=== PATIENT | female | born 1950 | race Caucasian/White ===

== ENCOUNTER 2023-04-24 08:49 | Emergency (ER) | payer MEDICARE, OTHER, SELFPAY ==
[2023-04-24 08:56] VITALS: BP 125/77; PULSE 65; RESP 18; TEMP 36.1; O2SAT 95; BMI 40.9
--- NOTE | 2023-04-24 09:07 | ED_ITS ---
HPI - General Adult General Time Seen by Provider: 09:08 Date Seen: 04/24/23 Chief complaint: Cough Stated complaint: pain R side Time Seen by Provider: 04/24/23 08:59 History of Present Illness HPI narrative: Very pleasant 72-year-old female with a past history of occasional sinus infections, but no history of heart disease, PE, asthma, COPD or other cardiopulmonary disease. She was sent to the ER today by the [facility] triage line for evaluation of cough and chest pain. She has had symptoms that she thinks are probably a ?sinus infection? for the past couple of weeks. She has had some nasal drainage and resultantly a cough. Cough is sometimes productive but no dark green sputum or any hemoptysis. She has not had any fever. She has generally not been short of breath. Since yesterday she has also been having some pain with coughing and breathing that affects her right posterolateral rib cage. She is pretty sure that she had a coughing spell yesterday and pulled muscles there. She is scheduled for her routine screening colonoscopy tomorrow and call the [facility] today to make an appointment to be checked out for the cough and sinus infection, and to determine whether not she should go ahead with her colonoscopy prep and the procedure tomorrow (since she is sick). Unfortunately the [facility] was booked up so they sent her here to the ER to be checked out. She is not having any flank pain or anterior abdominal pain. The pain is in her ribs. She does not really feel short of breath. No fevers. No headache. No sore throat. No central or left-sided chest pain, only in her right posterolateral ribs. She has not noticed any rash. No known injury. No swelling in her legs. Related Data Previous Rx's Medication Instructions Recorded diazepam 5 mg tablet 2.5 - 5 mg (0.5 - 1 x 5 mg) PO TID 04/24/23 PRN muscle spasm #10 tabs Allergies Allergy/AdvReac Type Severity Reaction Status Date / Time Cephalosporins Allergy Intermediate Hives Verified 04/24/23 08:56 PFSH PFSH Social History Non-prescribed substance use: denies use Exam Narrative: Exam Narrative: Constitutional: Appears well-developed and well-nourished. Alert. Conversant. Non toxic. HENT: Head: Atraumatic. Nose: Nose normal. No purulent drainage. No sinus tenderness. Mouth/Throat: Oral mucosa is clear and moist. no trismus. Pharynx normal. Tonsils symmetric. No tonsillar enlargement, erythema, or exudate. Eyes: Conjunctivae normal. EOM normal. Pupils equal, round, and reactive to light. No scleral icterus. Neck: Normal range of motion. Neck supple. No tracheal deviation present. No JVD Cardiovascular: Normal rate, regular rhythm. No gallop. No friction rub. No murmur heard. Symmetric radial artery pulses Pulmonary/Chest: Effort normal. No stridor. No respiratory distress. No wheezes. Subtle right> left basilar rales rhonchi . No tenderness. No rash. No shingles. Abdominal: Soft. Bowel sounds normal. No distension. No mass. No tenderness. No right upper quadrant tenderness or Niño sign. No rebound. No guarding. Musculoskeletal: RUE: Normal range of motion. No tenderness. No deformity LUE: Normal range of motion. No tenderness. No deformity RLE: Normal range of motion. No edema. No tenderness. No deformity LLE: Normal range of motion. No edema. No tenderness. No deformity Lymph: No cervical adenopathy. Neurological: Alert and oriented to person, place, and time. Normal strength. CN II-VII intact. No sensory deficit. GCS eye subscore is 4. GCS verbal subscore is 5. GCS motor subscore is 6. Normal coordination Skin: Skin is warm and dry. No rash noted. No pallor. Normal capillary refill. Psychiatric: Normal mood. Normal affect. Const: Vital Signs, click to edit/add: Vital Signs - 24 hr 04/24/23 08:56 Temperature 96.9 F L Pulse Rate [Pulse Oximeter] 65 Respiratory Rate 18 Blood Pressure [Ri ght Upper Arm] 125/77 Pulse Oximetry 95 Oxygen Delivery Me thod Room Air Course Vital Signs Vital signs: Initial Vital Signs Temperature 96.9 F L 04/24/23 08:56 Temperature Source Temporal Artery Scan 04/24/23 08:56 Pulse Rate 65 04/24/23 08:56 Respiratory Rate 18 04/24/23 08:56 Blood Pressure 125/77 04/24/23 08:56 Blood Pressure Mean 93 04/24/23 08:56 Pulse Oximetry 95 04/24/23 08:56 Oxygen Delivery Method Room Air 04/24/23 08:56 Vital Signs Temperature 96.9 F L 04/24/23 08:56 Pulse Rate 65 04/24/23 08:56 Respiratory Rate 18 04/24/23 08:56 Blood Pressure 125/77 04/24/23 08:56 Pulse Oximetry 95 04/24/23 08:56 Oxygen Delivery Method Room Air 04/24/23 08:56 Temperature 96.9 F L 04/24/23 08:56 Pulse Rate 65 04/24/23 08:56 Respiratory Rate 18 04/24/23 08:56 Blood Pressure 125/77 04/24/23 08:56 Pulse Oximetry 95 04/24/23 08:56 Oxygen Delivery Method Room Air 04/24/23 08:56 Medical Decision Making MDM Narrative Medical decision making narrative: This patient presents for evaluation of cough ongoing for about the past 10 days-2 weeks. Cough is not really worse today but yesterday she feels like she pulled some muscles in her right posterolateral ribs and has been having pain with coughing since then.. This is consistent with an upper respiratory tract infection. Viral testing is negative for COVID, influenza, RSV.. There is no signs at this point of serious bacterial infection such as OM, RPA, epiglottitis, [employer], strep pharyngitis, pneumonia, sinusitis, meningitis, bacteremia, serious bacterial infection. Given duration of cough and associated pain we did feel a chest x-ray was indicated to look for pneumonia, associated pleural effusion, or possible rib fracture. Chest x-ray shows no acute findings. 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 A a broader Differential for her chest pain was also considered. Consider ACS, PE, shingles, blunt trauma, for pain from gallbladder, among others. Discussed possible further workup with EKG and labs. At this point the patient feels pretty confident that her pain is musculoskeletal so we decided to hold off on further workup. There are no gastrointestinal symptoms at this point and no signs of dehydration. She is scheduled for a routine screening outpatient colonoscopy tomorrow. I advised her to call her provider for that but likely this would need to be postponed in the setting of illness. Close followup with primary care physician is indicated. Return to ED for any worsening symptoms, especially worsening chest pain, worsening trouble breathing, fever > 103, protracted vomiting, confusion, or other worsening. Patient has been using [id number] Tylenol ibuprofen but find them to be ineffective for rib pain. She requests something stronger. Opiates have been ineffective for her in the past so will hold off on those. Will try a low-dose muscle relaxer with diazepam 2.5-5 mg p.o. t.i.d. p.r.n.. Reviewed the potential for side effects and sedation precautions. Patient understands and agrees. Lab Data Labs: Lab Results 04/24/23 Range/Units Unknown SARS-CoV-2 (PCR) Negative SARS-CoV-2 (Negative) Influenza Type A (PCR) Negative PCR FLU A (Negative) Influenza Type B (PCR) Negative PCR FLU B (Negative) RSV (PCR) Negative PCR RSV (Negative) Imaging Data Chest x-ray: Attestation: I have reviewed the pertinent imaging results. Radiologist's impression: Findings/Impression: Cardiovascular and mediastinum: Normal heart size with mild aortic tortuosity and atherosclerotic calcification. Lungs and pleural spaces: No pleural effusion pneumothorax. Trace discoid atelectasis left lung base. Bones and soft tissues: Degenerative disc disease thoracolumbar spine. Discharge Plan Discharge Clinical Impression: Cough, Pain in rib Patient Disposition: Home, Self-Care Condition: Stable Instructions: Chest Pain (DC), Acute Cough (ED) Additional Instructions: As we discussed, please come back to the ER right away if you have worsening cough, worsening pain in her chest, changing symptoms, lightheadedness, or any concerns. Continues to use [id number] medications such as Tylenol or ibuprofen to help manage her pain. Use the prescription muscle relaxer if needed. Be careful because this can cause drowsiness and dizziness. Call your doctor to reschedule your colonoscopy. Prescriptions: New diazepam 5 mg tablet 2.5 - 5 mg PO TID PRN (Reason: muscle spasm) Qty: 10 0RF Follow Up/Referrals: Nerissa Mock PA-C [Primary Care Provider] - Stand Alone Forms: [facility] Info Instructions
--- NOTE | 2023-04-24 09:10 | CRLHL7_ITS ---
For Patients: As a result of the Century Cures Act, medical imaging exams and procedure reports are released immediately into your electronic medical record. You may view this report before your referring provider. If you have questions, please contact your health care provider. Indication: Cough and right rib pain Technique: Chest 2 views Comparison: None Findings/Impression: Cardiovascular and mediastinum: Normal heart size with mild aortic tortuosity and atherosclerotic calcification. Lungs and pleural spaces: No pleural effusion pneumothorax. Trace discoid atelectasis left lung base. Bones and soft tissues: Degenerative disc disease thoracolumbar spine. Dictated by Chico Shetty MD @ 04/24/2023 9:49:31 AM (Electronically Signed)
[2023-04-24 10:00] LABS: PCR FLU A Negative PCR FLU A (Negative); PCR FLU B Negative PCR FLU B (Negative); PCR RSV Negative PCR RSV (Negative)
[2023-04-24 10:09] LABS: SARS PCR* Negative SARS-CoV-2 (Negative)
== END 2023-04-24 10:27 | disposition home or self-care (01) ==
PROVIDERS: Emergency Provider Emergency Medicine; PCP Student in an Organized Health Care Education/Training Program
DX: R05.9 Cough, unspecified (principal); R07.82 Intercostal pain
CPT/HCPCS: 71046; 87631; 99283

== ENCOUNTER 2023-08-03 22:30 | Emergency (ER) | payer MEDICARE, OTHER, SELFPAY ==
[2023-08-03 22:43] VITALS: BP 150/82; PULSE 78; RESP 18; TEMP 36.6; O2SAT 96; BMI 40.6
--- NOTE | 2023-08-03 22:52 | CRLHL7_ITS ---
For Patients: As a result of the Century Cures Act, medical imaging exams and procedure reports are released immediately into your electronic medical record. You may view this report before your referring provider. If you have questions, please contact your health care provider. INDICATION: Right flank pain. TECHNIQUE: CT abdomen and pelvis without contrast. COMPARISON: None. FINDINGS: Limited evaluation of the intra-abdominal solid organs without IV contrast. Lower chest: Unremarkable. Liver: Normal in size and attenuation. No suspicious masses. Gallbladder and bile ducts: No stones or inflammation. No biliary dilatation. Pancreas: Unremarkable. No mass or inflammation. Spleen: Normal in size. No masses. Adrenal glands: Normal in size. No nodules. Kidneys: Normal in size. No suspicious masses, stones, or hydronephrosis. GI tract: Redundant sigmoid. Average colonic stool volume. Appendix is not visualized. No bowel obstruction. Small hiatal hernia. Vasculature: Abdominal aorta is normal in caliber. Lymph nodes: No lymphadenopathy. Peritoneum/Abdominal Wall: Unremarkable. No sign of mass or infiltration. No free air or significant free fluid. Pelvis: Calcified fibroid in the uterus. Bladder is unremarkable. Bones: Unremarkable for age. IMPRESSION: No acute intra-abdominal process identified. No renal or ureteral stones. No hydronephrosis or hydroureter. Please note that all CT scans at this facility use dose modulation, iterative reconstruction, and/or weight-based dosing when appropriate to reduce radiation dose to as low as reasonably achievable. Dictated by Jennifer Bonilla MD @ 08/03/2023 11:39:38 PM (Electronically Signed)
--- NOTE | 2023-08-03 22:55 | ED_ITS ---
HPI - General Adult General Date Seen: 08/03/23 Chief complaint: Back Injury/Pain Stated complaint: stabbing pain in back Time Seen by Provider: 08/03/23 22:44 Source: patient Mode of arrival: ambulatory Limitations: no limitations History of Present Illness HPI narrative: Patient is a 73-year-old female with history of hypertension presenting to the emergency department for right low back/right flank pain. She states the pain started suddenly yesterday while she was sitting down. States the pain is sharp in nature and she has not noticed any tenderness to the area. States his very hard for her to sit still. Does states she has had similar symptoms several years ago and was told at that time it was sciatica off and not a kidney stone. She has no history of kidney stones. Symptoms simply getting worse at the time has been going on. She does state the pain [place] in flows and right now it is a 5 or 6/10. Denies fevers, chills, chest pain, abdominal pain, dysuria, lightheadedness, dizziness, nausea/vomiting. Does states she is short of breath but that is chronic and not any different than her normal. States she last took an ibuprofen a couple hours ago and does state that ibuprofen has been helping some. She does not remember hurting her back. Related Data Home Medications Medication Instructions Recorded Confirmed budesonide-formoterol HFA 80 inhalation 08/03/23 mcg-4.5 mcg/actuation aerosol inhaler (Symbicort) bupropion HCl 150 mg 24 hr tablet, 150 mg PO QAM 08/03/23 08/03/23 extended release fluoxetine 40 mg capsule 40 mg PO DAILY 08/03/23 08/03/23 lisinopril 20 mg tablet 20 mg PO DAILY 08/03/23 08/03/23 omeprazole 40 mg capsule,delayed 40 mg PO DAILY 08/03/23 08/03/23 release Allergies Allergy/AdvReac Type Severity Reaction Status Date / Time Cephalosporins Allergy Intermediate Hives Verified 04/24/23 08:56 tree nut AdvReac Verified 08/03/23 22:45 Review of Systems Status of ROS: Reports: 10 or more systems reviewed and unremarkable except as noted in History and below PFSH PFSH Social History Smoking Status: Never smoker How often do you have a drink containing alcohol: never AUDIT-C Alcohol total score: 0 Non-prescribed substance use: denies use Exam Narrative: Exam Narrative: Const: Well-nourished, Well-developed, in mild distress Eyes: PERRL, no conjunctival injection, and symmetrical lids HENT: Atraumatic external nose and ears. Moist mucous membranes. Neck: Symmetric, trachea midline, No thyromegaly. CVS: RRR, No murmurs or gallops. Peripheral pulses 2+ and equal in all extremities RESP: Unlabored respiratory effort. Clear to auscultation bilaterally. GI: Nontender/Nondistended, No rebound or guarding. MSK:Extremities w/o deformity, Normal Active ROM Skin: Warm, Dry. No rashes or lesions. Neuro: Normal Muscle tone, No focal neurological deficits. Psych: Awake, Alert, & Oriented x3. Appropriate mood and affect. Const: Vital Signs, click to edit/add: Vital Signs - 24 hr 08/03/23 22:43 Temperature 97.8 F Pulse Rate [Pulse Oximeter] 78 Respiratory Rate 18 Blood Pressure [Ri ght Upper Arm] 150/82 H Pulse Oximetry 96 Oxygen Delivery Me thod Room Air Course Vital Signs Vital signs: Initial Vital Signs Temperature 97.8 F 08/03/23 22:43 Temperature Source Temporal Artery Scan 08/03/23 22:43 Pulse Rate 78 08/03/23 22:43 Respiratory Rate 18 08/03/23 22:43 Blood Pressure 150/82 H 08/03/23 22:43 Blood Pressure Mean 104 08/03/23 22:43 Blood Pressure Position Sitting 08/03/23 22:43 Pulse Oximetry 96 08/03/23 22:43 Oxygen Delivery Method Room Air 08/03/23 22:43 Vital Signs Temperature 97.8 F 08/03/23 22:43 Pulse Rate 78 08/03/23 22:43 Respiratory Rate 18 08/03/23 22:43 Blood Pressure 150/82 H 08/03/23 22:43 Pulse Oximetry 96 08/03/23 22:43 Oxygen Delivery Method Room Air 08/03/23 22:43 Temperature 97.8 F 08/03/23 22:43 Pulse Rate 78 08/03/23 22:43 Respiratory Rate 18 08/03/23 22:43 Blood Pressure 150/82 H 08/03/23 22:43 Pulse Oximetry 96 08/03/23 22:43 Oxygen Delivery Method Room Air 08/03/23 22:43 Medical Decision Making MDM Narrative Medical decision making narrative: Patient is a 73-year-old female presenting for right flank pain. At this time it could just be a muscle strain but considering she is having difficulty sitting still due to the pain and the ways she describes the pain I am concerned about a kidney stone. We will do a CT scan without contrast. Will also order basic lab work and a urinalysis. She does not want any pain medication at this time. CMP shows no concerning findings. Kidney function within normal limits. Urinalysis shows no concerning findings. CT scan also showed no concerning abnormalities. At this point does not appear to be any intra-abdominal issues causing her pain. No clear signs of infections anywhere. Pain is likely musculoskeletal in nature. Before discharge she did want a dose of Toradol in at this point been about 4 hours since she last had ibuprofen and she has normal kidney function so I am agreeable to this. Patient be discharged home. Lab Data Labs: Lab Results 08/03/23 08/03/23 Range/Units 23:00 23:10 Sodium 133 L (135-149) mmol/L Potassium 4.4 (3.6-5.1) mmol/L Chloride 100 (96-114) mmol/L Carbon Dioxide 20 (20-32) mmol/L Anion Gap 13 (7-15) mEq/L BUN 21 (7-30) mg/dL Creatinine 0.9 (0.5-1.5) mg/dL Estimated Creat Clear 37.81 Estimated GFR 68 ml/min Glucose 107 (60-115) mg/dL Calcium 9.3 (8.4-10.6) mg/dL Total Bilirubin 0.8 (0.1-1.5) mg/dL AST 26 (12-35) U/L ALT 25 (4-35) U/L Alkaline Phosphatase 83 (40-150) U/L Total Protein 7.9 (6.0-8.3) g/dL Albumin 4.6 (3.3-5.0) g/dL Urine Color Yellow (Yellow) Urine Appearance Clear (Clear) Urine pH 6.5 (5.0-8.5) Ur Specific [place] 1.025 (1.000-1.030) Urine Protein Negative (Negative) Urine Glucose (UA) Negative (Negative) Urine Ketones Negative (Negative) Urine Blood 1+ A (Negative) Urine Nitrite Negative (Negative) Urine Bilirubin Negative (Negative) Urine Urobilinogen 1.0 (0.2-1.0) Ur Leukocyte Esterase Negative (Negative) Urine RBC 2-5 A (0-2) Urine WBC 0-2 (0-5) Ur Squamous Epith Cells Few (None-Few) Urine Bacteria Few A (None) Urine Mucus Moderate A (None) Imaging Data CT scan abdomen and pelvis: Radiologist's impression: No acute intra-abdominal process identified. No renal or ureteral stones. No hydronephrosis or hydroureter. Please note that all CT scans at this facility use dose modulation, iterative reconstruction, and/or weight-based dosing when appropriate to reduce radiation dose to as low as reasonably achievable. Dictated by Jennifer Bonilla MD @ 08/03/2023 11:39:38 PM Discharge Plan Discharge Clinical Impression: Lumbar strain Qualifiers: Encounter type: initial encounter Qualified Code(s): S39.012A - Strain of muscle, fascia and tendon of lower back, initial encounter Patient Disposition: Home, Self-Care Condition: Stable Instructions: Lower Back Exercises (ED) Additional Instructions: It appears the back pain is from a muscle strain. If symptoms persist he could follow-up with your primary care provider. Return to the emergency department for new or worsening symptoms Prescriptions: No Action fluoxetine 40 mg capsule 40 mg PO DAILY lisinopril 20 mg tablet 20 mg PO DAILY omeprazole 40 mg capsule,delayed release(DR/EC) 40 mg PO DAILY bupropion HCl 150 mg tablet extended release 24 hr 150 mg PO QAM budesonide-formoterol [Symbicort] 80-4.5 mcg/actuation HFA aerosol inhaler inhalation Follow Up/Referrals: Nerissa Mock PA-C [Primary Care Provider] - Stand Alone Forms: [employer] Info Instructions
[2023-08-03 23:06] LABS: Appearance Urine Clear (Clear); Bilirubin Urine Negative (Negative); Blood Urine 1+ (Negative); Color Urine Yellow (Yellow); Glucose Urine Negative (Negative); Ketones Urine Negative (Negative); Leukocyte Esterase Urine Negative (Negative); Nitrite Urine Negative (Negative); Protein Urine Negative (Negative); Specific Gravity Urine 1.025 (1.000-1.030); pH Urine 6.5 (5.0-8.5)
[2023-08-03 23:31] LABS: Bacteria Urine Few; Mucus Urine Moderate; Squamous Epithelial Cell Urine Few (None-Few); WBC Urine 0-2 (0-5)
[2023-08-03 23:34] LABS: Albumin* 4.6 g/dL (3.3-5.0); Chloride* 100 mmol/L (96-114); Sodium* 133 mmol/L (135-149)
[2023-08-03 23:37] LABS: Alanine Aminotransferase* 25 U/L (4-35); Alkaline Phosphatase* 83 U/L (40-150); Anion Gap 13 mEq/L (7-15); Aspartate Amino Transferase* 26 U/L (12-35); Bilirubin Total* 0.8 mg/dL (0.1-1.5); Blood Urea Nitrogen* 21 mg/dL (7-30); Carbon Dioxide* 20 mmol/L (20-32); Creatinine* 0.9 mg/dL (0.5-1.5); Est. Creatinine Clearance* 37.81; Estimated Glomerular Filt Rate 68 ml/min; Glucose* 107 mg/dL (60-115); Potassium* 4.4 mmol/L (3.6-5.1); Total Protein* 7.9 g/dL (6.0-8.3)
[2023-08-03 23:38] LABS: Calcium* 9.3 mg/dL (8.4-10.6)
[2023-08-04 00:20] VITALS: BP 141/67; PULSE 71; RESP 18; O2SAT 96
== END 2023-08-04 00:38 | disposition home or self-care (01) ==
PROVIDERS: Emergency Provider Student in an Organized Health Care Education/Training Program; PCP Student in an Organized Health Care Education/Training Program
DX: S39.012A Strain of muscle, fascia and tendon of lower back, initial encounter (principal)
CPT/HCPCS: 36415; 74176; 80048; 80053; 81001; 87086; 99282; 99283

== ENCOUNTER 2024-05-01 10:38 | Outpatient (CLI) | payer MEDICARE, OTHER, SELFPAY | END 2024-05-01 10:39 | disposition home or self-care (01) | LOC: NFLDREF 05-02 08:31 | PROVIDERS: PCP Student in an Organized Health Care Education/Training Program; Referring Provider Student in an Organized Health Care Education/Training Program; Visit Provider Nurse Practitioner Family | DX: N30.90 Cystitis, unspecified without hematuria (principal) | CPT/HCPCS: 87086; 87186 ==

== ENCOUNTER 2024-07-09 20:16 | Emergency (ER) | payer MEDICARE, OTHER, SELFPAY ==
[2024-07-09 20:25] VITALS: BP 130/80; PULSE 73; RESP 22; TEMP 35.9; O2SAT 98; BMI 37.2
--- NOTE | 2024-07-09 20:27 | ED.ABDPAIN ---
HPI - Abdominal Pain General Time Seen by Provider: 20:27 Date Seen: 07/09/24 Chief Complaint: Abdominal Pain Stated Complaint: Severe stomach pains-short breath Time Seen by Provider: 07/09/24 20:26 Source: patient, RN notes reviewed and old records reviewed Mode of arrival: ambulatory Limitations: no limitations History of Present Illness HPI narrative: 73-year-old female with history of dysthymia, hypertension, chronic kidney disease who presents today with abdominal pain. Patient reports abrupt onset of generalized abdominal pain and cramping with a bloating sensation along with sweatiness, says the pain made her feel short of breath. Pain is significantly improved now but still having some discomfort. Denies nausea, vomiting, diarrhea. Denies prior abdominal surgery. Says she had not taken her medications prior to pain starting in took omeprazole but did not take any other medication for her symptoms. Still having some generalized abdominal discomfort as well as ?fluttering? of her abdominal muscles but generally feels better. Related Data Home Medications ?Medication ?Instructions ?Recorded ?Confirmed bupropion HCl 150 mg 24 hr tablet, 150 mg PO QAM 08/03/23 07/09/24 extended release fluoxetine 40 mg capsule 40 mg PO DAILY 08/03/23 07/09/24 lisinopril 20 mg tablet 20 mg PO DAILY 08/03/23 07/09/24 omeprazole 40 mg capsule,delayed 40 mg PO DAILY 08/03/23 07/09/24 release Allergies Allergy/AdvReac Type Severity Reaction Status Date / Time Cephalosporins Allergy Intermediate Hives Verified 07/09/24 20:29 tree nut AdvReac Verified 07/09/24 20:29 PFSH PFSH Social History Smoking Status: Never smoker How often do you have a drink containing alcohol: never AUDIT-C Alcohol total score: 0 Non-prescribed substance use: denies use Exam Narrative: Exam Narrative: General: Well-developed and well-nourished, no acute distress Head: Atraumatic and normocephalic Eyes: Pupils are equal reactive, extraocular motions intact, conjunctiva clear ENT: External nose and ears are normal, posterior pharynx without erythema or exudate Neck: No midline cervical tenderness, full spontaneous range of motion the neck, trachea midline, no adenopathy Heart: Regular rate and rhythm no murmurs or thrills Lungs: Clear to auscultation bilaterally without wheezes or crackles Abdomen: Soft, mild diffuse tenderness, nondistended with active bowel sounds Musculoskeletal: No tenderness, deformity, or edema Neurologic: Awake, alert, and oriented x3, no gross focal neurologic deficits, cranial nerves intact as tested Psych: Mood and affect are appropriate Skin: No rashes Const: Vital Signs, click to edit/add: Vital Signs - 24 hr 07/09/24 20:25 Temperature 96.7 F L Pulse Rate [Pulse Oximeter] 73 Respiratory Rate 22 Blood Pressure [Ri t Upper Arm] 130/80 Pulse Oximetry 98 Oxygen Delivery Me thod Room Air Course Course ED Course: Reviewed most recent urgent care visit from April 2024 when patient was seen with dysuria and pelvic cramping, patient was started on Bactrim twice a day for 3 days, urine culture with Enterobacter 10-20,000 CFU. Patient seen examined, presents today with generalized abdominal pain, abrupt onset although seemed to improve now. On exam here vital is stable, mild generalized abdominal tenderness with no specific right lower quadrant or right upper quadrant tenderness. Concern for possible biliary colic, obstruction, colitis, enteritis. Labs are ordered along with CT abdomen and pelvis. As patient's symptoms are improving, will observe for now but consider pain medication if symptoms worsen again. Patient without chest pain or shortness of breath, acute coronary syndrome clinically unlikely. Reevaluation(s) Time of Reevaluation #1: 22:53 Reevaluation #1: Labs ordered and independently interpreted by me with leukocytosis, normal basic panel, slight elevation in the AST and ALT with normal lipase, urinalysis not consistent infection and no hematuria. CT scan of the abdomen and pelvis independently interpreted by me with mild gastric distension without evidence of obstruction, moderate stool burden in the rectum, but no evidence of diverticulitis. Patient stable for discharge with outpatient follow-up, liquid diet for 24 hours. Time of Reevaluation #2: 23:24 Reevaluation #2: Reviewed radiology interpretation CT scan. Patient is feeling better in stable for discharge, no acute intra-abdominal findings today. Did discuss the small hiatal hernia, this will not need intervention unless patient were to become severely symptomatic which is unlikely. Vital Signs Vital signs: Initial Vital Signs Temperature 96.7 F L 07/09/24 20:25 Temperature Source Temporal Artery Scan 07/09/24 20:25 Pulse Rate 73 07/09/24 20:25 Pulse Rhythm Regular 07/09/24 20:25 Pulse Strength 3+ Normal 07/09/24 20:25 Respiratory Rate 22 07/09/24 20:25 Blood Pressure 130/80 07/09/24 20:25 Blood Pressure Mean 96 07/09/24 20:25 Blood Pressure Position Sitting 07/09/24 20:25 Pulse Oximetry 98 07/09/24 20:25 Oxygen Delivery Method Room Air 07/09/24 20:25 Vital Signs Temperature 96.7 F L 07/09/24 20:25 Pulse Rate 73 07/09/24 20:25 Respiratory Rate 22 07/09/24 20:25 Blood Pressure 130/80 07/09/24 20:25 Pulse Oximetry 98 07/09/24 20:25 Oxygen Delivery Method Room Air 07/09/24 20:25 Temperature 96.7 F L 07/09/24 20:25 Pulse Rate 73 07/09/24 20:25 Respiratory Rate 22 07/09/24 20:25 Blood Pressure 130/80 07/09/24 20:25 Pulse Oximetry 98 07/09/24 20:25 Oxygen Delivery Method Room Air 07/09/24 20:25 MDM - Abdominal Pain Lab Data Labs: Lab Results 07/09/24 07/09/24 Range/Units 21:23 Unknown WBC 13.74 H (4.50-11.00) K/uL RBC 4.50 (4.00-5.20) m/uL Hgb 12.5 (12.0-16.0) gm/dL Hct 38.7 (33.0-51.0) % MCV 86 (80-100) fL MCH 28 (26-34) pg MCHC 32 (32-36) gm/dL RDW Coeff of Radha 13.3 (11.5-15.5) % Plt Count 320 (140-440) K/uL Neut % (Auto) 72.2 H (42.0-72.0) % Lymph % (Auto) 19.3 L (20-44) % [place] % (Auto) 7.1 (0.0-11.0) % Eos % (Auto) 1.1 (0.0-7.0) % Baso % (Auto) 0.2 (0.0-3.0) % Neut # (Auto) 9.90 H (1.7-7.0) K/uL Lymph # (Auto) 2.70 (0.90-2.90) K/uL [place] # (Auto) 1.00 H (0.00-0.90) K/UL Eos # (Auto) 0.20 (0.00-0.50) K/uL Baso # (Auto) 0.00 (0.00-0.30) K/uL Abs Immat Gran (auto) 0.00 (0.00-0.30) K/uL Imm/Tot Granulo (auto) 0.1 % Sodium 138 (135-149) mmol/L Potassium 4.1 (3.6-5.1) mmol/L Chloride 102 (96-114) mmol/L Carbon Dioxide 21 (20-32) mmol/L Anion Gap 15 (7-15) mEq/L BUN 22 (7-30) mg/dL Creatinine 0.9 (0.5-1.5) mg/dL Estimated Creat Clear 37.81 Estimated GFR 68 ml/min Glucose 145 H (60-115) mg/dL Calcium 9.1 (8.4-10.6) mg/dL Total Bilirubin 0.7 (0.1-1.5) mg/dL Direct Bilirubin 0.4 (0.0-0.5) mg/dL AST 83 H (12-35) U/L ALT 44 H (4-35) U/L Alkaline Phosphatase 111 (40-150) U/L Total Protein 7.6 (6.0-8.3) g/dL Albumin 4.4 (3.3-5.0) g/dL Lipase 60 (23-300) U/L Urine Color Monica A (Yellow) Urine Appearance Cloudy A (Clear) Urine pH 8.5 (5.0-8.5) Ur Specific [place] 1.015 (1.000-1.030) Urine Protein 1+ A (Negative) Urine Glucose (UA) Negative (Negative) Urine Ketones Trace A (Negative) Urine Blood Negative (Negative) Urine Nitrite Negative (Negative) Urine Bilirubin Negative (Negative) Urine Urobilinogen 2.0 A (0.2-1.0) Ur Leukocyte Esterase Negative (Negative) Urine RBC 0-2 (0-2) Urine WBC 0-2 (0-5) Ur Squamous Epith Cells Few (None-Few) Amorphous Sediment Few A (None) Urine Bacteria None (None) Discharge Plan Discharge Clinical Impression: Abdominal pain, acute Patient Disposition: Home, Self-Care Condition: Stable Instructions: Acute Abdominal Pain (ED) Additional Instructions: Liquid diet for 24 hours Activity Level: Activity as Tolerated Discharge Diet: Full Liquid Prescriptions: No Action fluoxetine 40 mg capsule 40 mg PO DAILY lisinopril 20 mg tablet 20 mg PO DAILY omeprazole 40 mg capsule,delayed release(DR/EC) 40 mg PO DAILY bupropion HCl 150 mg tablet extended release 24 hr 150 mg PO QAM Follow Up/Referrals: Nerissa Mock [facility] [Primary Care Provider] - Stand Alone Forms: [facility] Info Instructions
--- NOTE | 2024-07-09 20:46 | CRLHL7_ITS ---
For Patients: As a result of the Century Cures Act, medical imaging exams and procedure reports are released immediately into your electronic medical record. You may view this report before your referring provider. If you have questions, please contact your health care provider. INDICATION: Abdominal pain. TECHNIQUE: Multiplanar CT examination of the abdomen and pelvis was performed after the administration of 98 mL Isovue 370 intravenous contrast. COMPARISON: CT abdomen pelvis 08/03/2023. FINDINGS: Lower chest: No focal consolidation. Normal heart size. No pleural effusions or pneumothorax. Subsegmental and dependent atelectasis. Dense coronary arterial calcifications. Small hiatal hernia with evidence of reflux. Scattered pulmonary nodules measuring up to 3 mm. Liver: Probable diffuse hepatic steatosis. Gallbladder: Unremarkable. Biliary: Unremarkable. Pancreas: Within normal limits. Spleen: Unremarkable. Adrenal glands: Unremarkable. Renal/ureters/bladder: Normal in size and symmetrically enhancing. No obstructive uropathy. No hydronephrosis or obstructive urinary calculi. No suspicious renal masses. The ureters appear unremarkable. The bladder is within normal limits. Pelvis: Calcified fibroid uterus. No adnexal masses. Gastrointestinal: No bowel wall thickening or bowel obstruction. Nonvisualized appendix. No significant colonic diverticulosis. Mild colonic stool burden. Vasculature: No aortic aneurysm. The portal vein remains patent. Scattered atherosclerotic calcifications. Lymph nodes: No pathologic lymphadenopathy by size criteria. Peritoneum: No free fluid or pneumoperitoneum. No drainable fluid collections. Abdominal wall/soft tissues: Unremarkable. Bones: No acute osseous abnormalities. Multilevel degenerative changes of the visualized thoracolumbar spine. IMPRESSION: 1. No acute abdominopelvic pathology. The etiology of the patient`s abdominal pain is not elucidated on this examination. 2. Probable diffuse hepatic steatosis. 3. Small hiatal hernia with evidence of reflux. 4. Calcified fibroid uterus. Please note that all CT scans at this facility use dose modulation, iterative reconstruction, and/or weight-based dosing when appropriate to reduce radiation dose to as low as reasonably achievable. Dictated by Marquis Beaulieu MD @ 07/09/2024 11:21:15 PM (Electronically Signed)
[2024-07-09 21:30] LABS: Bilirubin Urine Negative (Negative); Blood Urine Negative (Negative); Glucose Urine Negative (Negative); Specific Gravity Urine 1.015 (1.000-1.030); pH Urine 8.5 (5.0-8.5)
[2024-07-09 21:31] LABS: Amorphous Sediment Urine Few; Leukocyte Esterase Urine Negative (Negative); Nitrite Urine Negative (Negative); RBC Urine 0-2 (0-2); Squamous Epithelial Cell Urine Few (None-Few); WBC Urine 0-2 (0-5)
[2024-07-09 21:39] LABS: Basophils Percent Auto 0.2 % (0.0-3.0); Eosinophils Percent Auto 1.1 % (0.0-7.0); Hematocrit 38.7 % (33.0-51.0); Hemoglobin* 12.5 gm/dL (12.0-16.0); Immature Granulocytes Pct Auto 0.1 %; Lymphocytes Percent Auto 19.3 % (20-44); Mean Corpuscular HGB Conc 32 gm/dL (32-36); Mean Corpuscular Hemoglobin 28 pg (26-34); Mean Corpuscular Volume 86 fL (80-100); Monocytes Percent Auto 7.1 % (0.0-11.0); Neutrophils Percent Auto 72.2 % (42.0-72.0); Platelet Count* 320 K/uL (140-440); RDW Coefficient of Variation % 13.3 % (11.5-15.5); White Blood Count* 13.74 K/uL (4.50-11.00)
[2024-07-09 21:48] LABS: Slide Review Reflex No
[2024-07-09 21:53] LABS: Est. Creatinine Clearance* 37.81
[2024-07-09 21:54] LABS: Calcium* 9.1 mg/dL (8.4-10.6)
[2024-07-09 21:55] LABS: Lipase* 60 U/L (23-300)
[2024-07-09 22:01] LABS: Albumin* 4.4 g/dL (3.3-5.0); Potassium* 4.1 mmol/L (3.6-5.1)
[2024-07-09 22:55] LABS: Appearance Urine Cloudy (Clear); Color Urine Amber (Yellow); Ketones Urine Trace (Negative); Protein Urine 1+ (Negative)
[2024-07-09 22:56] LABS: Chloride* 102 mmol/L (96-114)
[2024-07-09 22:59] LABS: Anion Gap 15 mEq/L (7-15)
[2024-07-10 00:36] LABS: Alanine Aminotransferase* 46 U/L (4-35); Alkaline Phosphatase* 108 U/L (40-150); Aspartate Amino Transferase* 85 U/L (12-35); Bilirubin Direct* 0.6 mg/dL (0.0-0.5); Bilirubin Total* 0.9 mg/dL (0.1-1.5); Blood Urea Nitrogen* 21 mg/dL (7-30); Carbon Dioxide* 23 mmol/L (20-32); Creatinine* 0.8 mg/dL (0.5-1.5); Estimated Glomerular Filt Rate 78 ml/min; Glucose* 146 mg/dL (60-115); Total Protein* 7.5 g/dL (6.0-8.3)
== END 2024-07-09 23:37 | disposition home or self-care (01) ==
PROVIDERS: Emergency Provider Family Medicine; PCP Student in an Organized Health Care Education/Training Program
DX: R10.9 Unspecified abdominal pain (principal)
CPT/HCPCS: 36415; 74177; 80048; 80076; 81001; 83690; 85025; 99284; 99285; Q9967

== ENCOUNTER 2024-12-10 13:00 | Outpatient (CLI) | payer MEDICARE, OTHER, SELFPAY | END 2024-12-10 13:01 | disposition home or self-care (01) | LOC: NFLDREF 12-18 00:09 | PROVIDERS: PCP Student in an Organized Health Care Education/Training Program; Referring Provider Student in an Organized Health Care Education/Training Program | DX: R35.0 Frequency of micturition (principal); N39.0 Urinary tract infection, site not specified | CPT/HCPCS: 87086 ==